=== PATIENT | male | born 1965 | race Caucasian/White ===

== ENCOUNTER 2017-04-03 18:47 | Emergency (ER) | payer OTHER ==
[2017-04-03 19:08] VITALS: BP 146/96
[2017-04-03] MEDS ORDERED: Diphtheria,Pertussis(Acell),Tetanus Vaccine 0.5 ML SDV IM ONE (19:15)
[2017-04-03] MEDS ORDERED: Lidocaine 1% 20 ML MDV INJECT ONE (19:15)
--- NOTE | 2017-04-03 19:21 | EDM.PDOC ---
ED HPI GENERAL MEDICAL PROBLEM - General Chief Complaint: Laceration Stated Complaint: LACERATION TO LEFT HAND Time Seen by Provider: 04/03/17 19:07 Source of Information: Reports: Patient, Family History Limitations: Reports: No Limitations - History of Present Illness INITIAL COMMENTS - FREE TEXT/NARRATIVE: This is a 51 year old male. He was working on sheet metal and accidentally cut the left dorsal middle finger over the IP joint. There is a 1 cm laceration right over the dorsal IP joint that will gap open when he bends his finger. There are no other cuts or injury to his other left hand fingers. He is not up to date with his tetanus. Left 4-Ring finger Pain Score (Numeric/FACES): 0 - Related Data Allergies Allergy/AdvReac Type Severity Reaction Status Date / Time Penicillins Allergy Rash Verified 04/03/17 19:08 Home Meds: Home Meds Cyclobenzaprine [Flexeril] 04/03/17 [History] Gabapentin [Gralise] 04/03/17 [History] Hydrocodone/Acetaminophen [Hydrocodon-Acetaminophen 5-325] 04/03/17 [History] ED ROS GENERAL - Review of Systems Review Of Systems: See Below Constitutional: Denies: Fever, Chills HEENT: Reports: No Symptoms Respiratory: Reports: No Symptoms Cardiovascular: Reports: No Symptoms Endocrine: Reports: No Symptoms GI/Abdominal: Reports: No Symptoms : Reports: No Symptoms Musculoskeletal: Reports: Other (As per HPI) Skin: Reports: Other (As per HPI) Neurological: Reports: No Symptoms Psychiatric: Reports: No Symptoms Hematologic/Lymphatic: Reports: No Symptoms ED EXAM, SKIN/RASH Exam: See Below Exam Limited By: No Limitations General Appearance: Alert, WD/WN, No Apparent Distress Ears: Normal External Exam Nose: Normal Inspection Throat/Mouth: Normal Inspection, Normal Lips, Normal Voice Head: Normocephalic Neck: Supple Respiratory/Chest: No Respiratory Distress GI/Abdominal: Soft Back Exam: Full Range of Motion Extremities: Other (Left hand middle finger, dorsal laceration over the IP joint and he appears to have full ROM of the finger but the cut will gap open with flexion. No other hand injury noted.) Neurological: Alert, Oriented Psychiatric: Normal Affect, Normal Mood Skin: Warm, Dry Associated features: No: Warmth, Inflammation ED SKIN PROCEDURES - Laceration/Wound Repair Left Hand Lac/Wound length In cm: 1 (left middle finger) Appearance: Subcutaneous Distal NVT: Neuro & Vascular Intact, No Tendon Injury Anesthetic Type: Local Local Anesthesia - Lidocaine (Xylocaine): 1% Plain Local Anesthetic Volume: 4cc Skin Prep: Providone-Iodine (Betadine), Saline Exploration/Debridement/Repair: Wound Explored, Explored to Base Closed with: Sutures Suture Size: other (5-0) # of Sutures: 4 Suture Type: Nylon Sterile Dressing Applied: Nurse Tetanus Status Addressed: Yes Complications: No Course - Vital Signs Last Recorded V/S: Last Vital Signs Temp 98.4 F 04/03/17 19:06 Pulse 113 H 04/03/17 19:06 Resp 18 04/03/17 19:06 BP 146/96 H 04/03/17 19:06 Pulse Ox 98 04/03/17 19:06 - Orders/Labs/Meds Orders: Active Orders 24 hr Category Date Time Status Vaccines to be Administered [RC] PER UNIT ROUTINE Care 04/03/17 19:15 Active Meds: Medications Discontinued Medications Generic Name Dose Route Start Last Admin Trade Name Kady PRN Reason Stop Dose Admin Diphtheria/Tetanus/Acell Pertussis 0.5 ml 04/03/17 19:15 04/03/17 19:24 Adacel IM 04/03/17 19:16 0.5 ml .ONCE ONE Administration Lidocaine HCl 20 ml 04/03/17 19:15 04/03/17 19:26 Xylocaine 1% INJECT 04/03/17 19:16 20 ml ONETIME ONE Administration Lidocaine HCl Confirm 04/03/17 19:22 04/03/17 19:26 Xylocaine 1% Administered 04/03/17 19:23 Not Given Dose 50 ml .ROUTE .STK-MED ONE Departure - Departure Time of Disposition: 19:50 Disposition: Home, Self-Care 01 Condition: Good Clinical Impression: Laceration of left middle finger without damage to nail Qualifiers: Encounter type: initial encounter Foreign body presence: without foreign body Qualified Code(s): S61.213A - Laceration without foreign body of left middle finger without damage to nail, initial encounter - Discharge Information Instructions: Laceration Care, Adult, [id number] Forms: ED Department Discharge Additional Instructions: Keep the area clean and dry and covered for the next 4-5 days, continue to use your finger though it will be stiff and sore, take Tylenol or ibuprofen or Aleve for the soreness, watch for infection and if there is any signs of increased redness or drainage return to the ER immediately, suture removal in [address] [facility] walk-in clinic, ER or your family doctor - My Orders Last 24 Hours: My Active Orders 04/03/17 19:15 Vaccines to be Administered [RC] PER UNIT ROUTINE - Assessment/Plan Last 24 Hours: My Active Orders 04/03/17 19:15 Vaccines to be Administered [RC] PER UNIT ROUTINE
[2017-04-03] MEDS ORDERED: Lidocaine 1% 50 ML MDV ONE (19:22)
== END 2017-04-03 20:03 | disposition home or self-care (01) ==
LOC: JD.ED 18:47
DX: S61.213A Laceration without foreign body of left middle finger without damage to nail, initial encounter (principal); Z23 Encounter for immunization; Z88.0 Allergy status to penicillin; W45.8XXA Other foreign body or object entering through skin, initial encounter
CPT/HCPCS: 12001; 90471; 90715; 99282-25; 99283-25